=== PATIENT | female | born 1965 | race Asian ===

== ENCOUNTER 2017-05-09 12:22 | Day surgery (SDC) | payer BC ==
[~2017-05-09] VITALS: Ht 154.9 cm; Wt 67.4 kg
[2017-05-09 12:57] VITALS: Ht 154.9 cm; Wt 67.4 kg
[2017-05-09] MEDS ORDERED: LOSA25TA5 PO (13:04)
[2017-05-09 13:34] VITALS: BP 165/91; PULSE 55; RESP 12
[2017-05-09] MEDS ORDERED: MIDAZOLAM 1 MG/ML 2 ML INJ ONE ×2 (15:01→15:02)
[2017-05-09] MEDS ORDERED: FENTAnyl 50 MCG/ML VIAL ONE (15:01)
[2017-05-09 15:27] VITALS: BP 122/82; RESP 18
--- NOTE | 2017-06-07 14:43 | GILP ---
DATE OF PROCEDURE: 05/26/2017 PREOPERATIVE DIAGNOSIS: Screening colonoscopy. POSTOPERATIVE DIAGNOSES: 1. Colonoscopy all the way to the cecum. 2. Diverticulosis of the colon. 3. Internal hemorrhoids. 4. No colon neoplasm was identified. PROCEDURE PERFORMED: Colonoscopy. SURGEON: Pravin Burgess MD. INDICATION FOR PROCEDURE: Ms. Renetta Black is a 51-year-old female patient who is scheduled for screening colonoscopy. The procedure and possible complications were well explained to the patient. The patient understood and consented to the procedure. DESCRIPTION OF PROCEDURE: The colonoscope was carefully introduced in the rectum and under direct vision it was advanced all the way to the cecum. Findings, the patient was noted to have diverticulosis of the colon. She also had internal hemorrhoids. No colon neoplasm was identified. The patient tolerated the procedure very well. There was no complications from the procedure. At the end of procedure she was awake with stable vital signs and she was discharged home in the care of her family. IMPRESSION: 1. Colonoscopy all the way to the cecum. 2. Diverticulosis of the colon. 3. Internal hemorrhoids. 4. No colon neoplasm was identified. PLAN: 1. Anusol HC 2.5 percent cream for hemorrhoids. 2. Screening colonoscopy in 10 years. Dictated By: MD MERY Lawler/[email or web address] /Document#: [id number] CC: Pravin Burgess MD;*[facility]*
== END 2017-05-09 16:02 | disposition home or self-care (01) ==
LOC: GIL 12:22
PROVIDERS: ATTEND Internal Medicine Gastroenterology
DX: Z12.11 Encounter for screening for malignant neoplasm of colon (principal); K57.30 Diverticulosis of large intestine without perforation or abscess without bleeding; K64.8 Other hemorrhoids
CPT/HCPCS: 45378; J2250; J3010; Z7610